=== PATIENT | female | born 1970 | race American Indian/Alaskan Native ===

== ENCOUNTER 2017-02-24 10:46 | Emergency (ER) | payer MEDICARE ==
[2017-02-24 11:27] VITALS: BP 136/95
[2017-02-24] MEDS ORDERED: ASPIRIN PO ONE (11:27)
[2017-02-24 12:03] LABS: Basophils % (Auto) 0.6 % (0.0-1.8); Eosinophils # (Auto) 0.1 K/mm3 (0.0-0.4); Eosinophils % (Auto) 1.9 % (0.0-4.3); Hematocrit 39.4 % (30.3-42.9); Lymphocytes # (Auto) 1.9 K/mm3 (1.2-5.4); Lymphocytes % (Auto) 26.4 % (13.4-35.0); Mean Corpuscular HGB Conc 33 % (30-34); Mean Corpuscular Hemoglobin 28 pg (28-32); Mean Corpuscular Volume 85 fl (79-97); Monocytes # (Auto) 0.5 K/mm3 (0.0-0.8); Monocytes % (Auto) 6.3 % (0.0-7.3); Platelet Count 211 K/mm3 (140-440); Red Blood Count 4.65 M/mm3 (3.65-5.03); Red Cell Distribution Width 13.3 % (13.2-15.2)
[2017-02-24 12:20] LABS: BUN/Creatinine Ratio 14; Blood Urea Nitrogen 7 mg/dL (7-17); Calcium 9.3 mg/dL (8.4-10.2); Hemolysis Index 97
== END 2017-02-24 19:02 | disposition left against medical advice (07) ==
LOC: ED 10:46
DX: R07.9 Chest pain, unspecified (principal); Z53.21 Procedure and treatment not carried out due to patient leaving prior to being seen by health care provider
CPT/HCPCS: 36415; 80048; 84484; 85025; 93005; 93010

== ENCOUNTER 2018-04-18 17:23 | Emergency (ER) | payer MEDICARE ==
--- NOTE | 2018-04-18 17:51 | Emergency Department Report ---
Blank Doc - Documentation Documentation: 48 y/o female was at her MATHEMATICAL ENGINEER and told she had a UTI but was advised by her MATHEMATICAL ENGINEER to go to the ER to have the right pelvic pain evaluated further. NO ultrasound or pelvic exam done per pt. C/o of sharp pelvic pain with increase urinary urgency and frequency
[2018-04-18 19:12] LABS: Basophils # (Auto) 0.1 K/mm3 (0.0-0.1); Basophils % (Auto) 0.9 % (0.0-1.8); Eosinophils # (Auto) 0.1 K/mm3 (0.0-0.4); Eosinophils % (Auto) 2.2 % (0.0-4.3); Hematocrit 38.5 % (30.3-42.9); Lymphocytes # (Auto) 2.1 K/mm3 (1.2-5.4); Lymphocytes % (Auto) 30.2 % (13.4-35.0); Mean Corpuscular HGB Conc 34 % (30-34); Mean Corpuscular Volume 83 fl (79-97); Monocytes # (Auto) 0.3 K/mm3 (0.0-0.8); Monocytes % (Auto) 4.3 % (0.0-7.3); Platelet Count 198 K/mm3 (140-440); Red Blood Count 4.65 M/mm3 (3.65-5.03); Red Cell Distribution Width 13.9 % (13.2-15.2)
[2018-04-18 19:28] LABS: Bilirubin,Urine NEG (Negative); Blood,Urine NEG (Negative); Color,Urine Yellow (Yellow); Protein,Urine <15 mg/dL mg/dL (Negative); Urobilinogen,Urine < 2.0 mg/dL (<2.0)
[2018-04-18 19:34] LABS: Alanine Aminotransferase 29 units/L (7-56); Albumin 3.9 g/dL (3.9-5); BUN/Creatinine Ratio 12; Blood Urea Nitrogen 7 mg/dL (7-17); Calcium 8.9 mg/dL (8.4-10.2); Hemolysis Index 13
--- NOTE | 2018-04-18 22:27 | Cat Scan Report ---
FINAL REPORT PROCEDURE: CT abdomen and pelvis with contrast. TECHNIQUE: Computerized axial tomography of the abdomen and pelvis was performed after the IV inject ion of iodinated nonionic contrast. HISTORY: Lower abdominal pain. COMPARISON: No prior studies are available for comparison. FINDINGS: The lung bases are clear. There are no pleural effusions. The heart size is normal. There is very mil d diffuse fatty metamorphosis of the liver. Cholecystectomy clips are present. There is no biliary di latation. The pancreas and spleen appear normal. The adrenal glands are not enlarged. Both kidneys ap pear normal in size and configuration. The abdominal aorta has a normal caliber. There is no retroper itoneal adenopathy. There are some surgical clips in the stomach. There are several diverticula in th e descending colon. A normal appendix is visible. The bladder appears normal. The uterus has been rem alok. The regional skeleton appears intact. IMPRESSION: Very mild fatty metamorphosis of the liver. Previous cholecystectomy and hysterectomy. Previous stoma ch surgery. No evidence of acute disease in the abdomen or pelvis.
[2018-04-18] MEDS ORDERED: TORADOL IV ONE (23:18)
--- NOTE | 2018-04-18 23:19 | Emergency Department Report ---
ED Abdominal Pain HPI - General Chief Complaint: Abdominal Pain Stated Complaint: STOMACH PAIN Time Seen by Provider: 04/18/18 17:48 Source: patient Mode of arrival: Ambulatory Limitations: No Limitations - History of Present Illness Initial Comments: This is a 48-year-old -Italian female Presents with right lower quadrant pain for 3 days. Past medical history of rheumatoid arthritis, diabetes, hypertension, lupus obesity, and sleep apnea. Patient went to her WASTE EXAMINER today ran multiple tests and told her to follow-up in the emergency room for CT scan. Patient states she was diagnosed with a urinary tract infection and her floor space allocator called in a prescription to her pharmacy. She also reports dysuria and frequency. She denies vaginal discharge, vaginal bleeding, diarrhea, nausea or vomiting. MD Complaint: abdominal pain Onset/Timin -: days(s) Location: RLQ Radiation: none Migration to: no migration Severity: severe Severity scale (0 -10): 9 Quality: cramping Consistency: intermittent Improves With: nothing Worsens With: movement Associated Symptoms: denies other symptoms Treatments Prior to Arrival: NSAIDs - Related Data Home Medications Medication Instructions Recorded Confirmed Last Taken Cyanocobalamin 1,000 mg SUBLINGUAL DAILY 09/05/14 09/05/14 Unknown Fexofenadine HCl [Mucinex Allergy] 180 mg PO HS 09/05/14 09/05/14 Unknown Folic Acid 1 mg PO QDAY 09/05/14 09/05/14 Unknown Furosemide [Lasix] 40 mg PO QAM 09/05/14 09/05/14 Unknown Gabapentin 300 mg PO BID 09/05/14 09/05/14 Unknown Glimepiride [Amaryl] 2 mg PO QHS 09/05/14 09/05/14 Unknown Glimepiride [Amaryl] 4 mg PO QAM 09/05/14 09/05/14 Unknown Hydroxychloroquine [Plaquenil] 200 mg PO DAILY 09/05/14 09/05/14 Unknown Losartan [Cozaar] 100 mg PO QDAY 09/05/14 09/05/14 Unknown Metoprolol [Lopressor] 100 mg PO DAILY 09/05/14 09/05/14 Unknown Modafinil [Provigil] 200 mg PO QDAY 09/05/14 09/05/14 Unknown Morphine ER 2.5 mg PO BID 09/05/14 09/05/14 Unknown Protonix TAB 40 mg PO DAILY 09/05/14 09/05/14 Unknown Salsalate [Disalcid] 500 mg PO BID 09/05/14 09/05/14 Unknown Vitamin D 1,000 mg PO QDAY 09/05/14 09/05/14 Unknown metFORMIN [Glucophage] 500 mg PO BID 09/05/14 09/05/14 Unknown metHOTREXate(DOSE WEEKLY ONLY) 1.25 mg PO QWEEK 09/05/14 09/05/14 Unknown [metHOTREXate (DOSE WEEKLY ONLY)] Previous Rx's Medication Instructions Recorded Last Taken Type traMADol [Ultram 50 MG tab] 50 mg PO Q6HR PRN #12 tablet 04/19/18 Unknown Rx Allergies Allergy/AdvReac Type Severity Reaction Status Date / Time red dye Allergy HIVES / Verified 05/01/14 11:54 SHORTNESS OF BREATH ED Review of Systems ROS: Stated complaint: STOMACH PAIN Other details as noted in HPI Constitutional: denies: chills, fever Respiratory: denies: cough, shortness of breath, wheezing Cardiovascular: denies: chest pain, palpitations Gastrointestinal: abdominal pain. denies: nausea, diarrhea Genitourinary: dysuria. denies: urgency, discharge Musculoskeletal: denies: back pain, joint swelling, arthralgia Neurological: denies: headache, weakness, paresthesias Psychiatric: denies: anxiety, depression ED Past Medical Hx - Past Medical History Hx Hypertension: Yes Hx Diabetes: Yes Hx Arthritis: Yes (RHEUMATOID) Additional medical history: LUPUS. SLEEP APNEA. OBESITY. MITRAL VALVE REGUR GITATION - Surgical History Hx Cholecystectomy: Yes (gastric sleeve) Additional Surgical History: HYSTERECTOMY. TUBAL LIGATION. OOPHARECTOMY. COLON RESECTION - Social History Smoking Status: Never Smoker Substance Use Type: None - Medications Home Medications: Home Medications Medication Instructions Recorded Confirmed Last Taken Type Cyanocobalamin 1,000 mg SUBLINGUAL DAILY 09/05/14 09/05/14 Unknown History Fexofenadine HCl [Mucinex Allergy] 180 mg PO HS 09/05/14 09/05/14 Unknown History Folic Acid 1 mg PO QDAY 09/05/14 09/05/14 Unknown History Furosemide [Lasix] 40 mg PO QAM 09/05/14 09/05/14 Unknown History Gabapentin 300 mg PO BID 09/05/14 09/05/14 Unknown History Glimepiride [Amaryl] 2 mg PO QHS 09/05/14 09/05/14 Unknown History Glimepiride [Amaryl] 4 mg PO QAM 09/05/14 09/05/14 Unknown History Hydroxychloroquine [Plaquenil] 200 mg PO DAILY 09/05/14 09/05/14 Unknown History Losartan [Cozaar] 100 mg PO QDAY 09/05/14 09/05/14 Unknown History Metoprolol [Lopressor] 100 mg PO DAILY 09/05/14 09/05/14 Unknown History Modafinil [Provigil] 200 mg PO QDAY 09/05/14 09/05/14 Unknown History Morphine ER 2.5 mg PO BID 09/05/14 09/05/14 Unknown History Protonix TAB 40 mg PO DAILY 09/05/14 09/05/14 Unknown History Salsalate [Disalcid] 500 mg PO BID 09/05/14 09/05/14 Unknown History Vitamin D 1,000 mg PO QDAY 09/05/14 09/05/14 Unknown History metFORMIN [Glucophage] 500 mg PO BID 09/05/14 09/05/14 Unknown History metHOTREXate(DOSE WEEKLY ONLY) 1.25 mg PO QWEEK 09/05/14 09/05/14 Unknown History [metHOTREXate (DOSE WEEKLY ONLY)] traMADol [Ultram 50 MG tab] 50 mg PO Q6HR PRN #12 tablet 04/19/18 Unknown Rx ED Physical Exam - General Limitations: No Limitations General appearance: alert, in no apparent distress, obese - Respiratory Respiratory exam: Present: normal lung sounds bilaterally. Absent: respiratory distress - Cardiovascular Cardiovascular Exam: Present: regular rate, normal rhythm. Absent: systolic murmur, diastolic murmur, rubs, gallop - GI/Abdominal GI/Abdominal exam: Present: soft, tenderness (right lower quadrant tenderness), normal bowel sounds. Absent: distended, guarding, rebound, rigid, organomegaly, mass - Back Exam Back exam: Absent: CVA tenderness (R), CVA tenderness (L) - Neurological Exam Neurological exam: Present: alert, oriented X3, normal gait - Psychiatric Psychiatric exam: Present: normal affect, normal mood - Skin Skin exam: Present: warm, dry, intact, normal color. Absent: rash ED Course Vital Signs 02/19/19 18:44 Temperature 98.6 F Pulse Rate 85 Respiratory 20 Rate Blood Pressure 171/97 O2 Sat by Pulse 100 Oximetry ED Medical Decision Making - Lab Data Result diagrams: 04/18/18 18:28 04/18/18 18:28 Lab Results 04/18/18 04/18/18 04/18/18 Range/Units 18:28 18:28 18:28 WBC 6.8 (4.5-11.0) K/mm3 RBC 4.65 (3.65-5.03) M/mm3 Hgb 13.0 (10.1-14.3) gm/dl Hct 38.5 (30.3-42.9) % MCV 83 (79-97) fl MCH 28 (28-32) pg MCHC 34 (30-34) % RDW 13.9 (13.2-15.2) % Plt Count 198 (140-440) K/mm3 Lymph % (Auto) 30.2 (13.4-35.0) % [place] % (Auto) 4.3 (0.0-7.3) % Eos % (Auto) 2.2 (0.0-4.3) % Baso % (Auto) 0.9 (0.0-1.8) % Lymph # 2.1 (1.2-5.4) K/mm3 [place] # 0.3 (0.0-0.8) K/mm3 Eos # 0.1 (0.0-0.4) K/mm3 Baso # 0.1 (0.0-0.1) K/mm3 Seg Neutrophils % 62.4 (40.0-70.0) % Seg Neutrophils # 4.3 (1.8-7.7) K/mm3 Sodium 139 (137-145) mmol/L Potassium 3.6 (3.6-5.0) mmol/L Chloride 101.6 (98-107) mmol/L Carbon Dioxide 25 (22-30) mmol/L Anion Gap 16 mmol/L BUN 7 (7-17) mg/dL Creatinine 0.6 L (0.7-1.2) mg/dL Estimated GFR > 60 ml/min BUN/Creatinine Ratio 12 % Glucose 226 H (65-100) mg/dL Calcium 8.9 (8.4-10.2) mg/dL Total Bilirubin 0.30 (0.1-1.2) mg/dL AST 27 (5-40) units/L ALT 29 (7-56) units/L Alkaline Phosphatase 78 (35-129) units/L Total Protein 7.0 (6.3-8.2) g/dL Albumin 3.9 (3.9-5) g/dL Albumin/Globulin Ratio 1.3 % Lipase 32 (13-60) units/L Urine Color (Yellow) Urine Turbidity (Clear) Urine pH (5.0-7.0) Ur Specific [place] (1.003-1.030) Urine Protein (Negative) mg/dL Urine Glucose (UA) (Negative) mg/dL Urine Ketones (Negative) mg/dL Urine Blood (Negative) Urine Nitrite (Negative) Urine Bilirubin (Negative) Urine Urobilinogen (<2.0) mg/dL Ur Leukocyte Esterase (Negative) Urine WBC (Auto) (0.0-6.0) /HPF Urine RBC (Auto) (0.0-6.0) /HPF U Epithel Cells (Auto) (0-13.0) /HPF 04/18/18 Range/Units 18:59 WBC (4.5-11.0) K/mm3 RBC (3.65-5.03) M/mm3 Hgb (10.1-14.3) gm/dl Hct (30.3-42.9) % MCV (79-97) fl MCH (28-32) pg MCHC (30-34) % RDW (13.2-15.2) % Plt Count (140-440) K/mm3 Lymph % (Auto) (13.4-35.0) % [place] % (Auto) (0.0-7.3) % Eos % (Auto) (0.0-4.3) % Baso % (Auto) (0.0-1.8) % Lymph # (1.2-5.4) K/mm3 [place] # (0.0-0.8) K/mm3 Eos # (0.0-0.4) K/mm3 Baso # (0.0-0.1) K/mm3 Seg Neutrophils % (40.0-70.0) % Seg Neutrophils # (1.8-7.7) K/mm3 Sodium (137-145) mmol/L Potassium (3.6-5.0) mmol/L Chloride (98-107) mmol/L Carbon Dioxide (22-30) mmol/L Anion Gap mmol/L BUN (7-17) mg/dL Creatinine (0.7-1.2) mg/dL Estimated GFR ml/min BUN/Creatinine Ratio % Glucose (65-100) mg/dL Calcium (8.4-10.2) mg/dL Total Bilirubin (0.1-1.2) mg/dL AST (5-40) units/L ALT (7-56) units/L Alkaline Phosphatase (35-129) units/L Total Protein (6.3-8.2) g/dL Albumin (3.9-5) g/dL Albumin/Globulin Ratio % Lipase (13-60) units/L Urine Color Yellow (Yellow) Urine Turbidity Clear (Clear) Urine pH 6.0 (5.0-7.0) Ur Specific [place] 1.011 (1.003-1.030) Urine Protein <15 mg/dl (Negative) mg/dL Urine Glucose (UA) Neg (Negative) mg/dL Urine Ketones Neg (Negative) mg/dL Urine Blood Neg (Negative) Urine Nitrite Neg (Negative) Urine Bilirubin Neg (Negative) Urine Urobilinogen < 2.0 (<2.0) mg/dL Ur Leukocyte Esterase Sm (Negative) Urine WBC (Auto) 4.0 (0.0-6.0) /HPF Urine RBC (Auto) 1.0 (0.0-6.0) /HPF U Epithel Cells (Auto) 2.0 (0-13.0) /HPF - Radiology Data Radiology results: report reviewed FINAL REPORT PROCEDURE: CT abdomen and pelvis with contrast. TECHNIQUE: Computerized axial tomography of the abdomen and pelvis was performed after the IV injection of iodinated nonionic contrast. HISTORY: Lower abdominal pain. COMPARISON: No prior studies are available for comparison. FINDINGS: The lung bases are clear. There are no pleural effusions. The heart size is normal. There is very mild diffuse fatty metamorphosis of the liver. Cholecystectomy clips are present. There is no biliary dilatation. The pancreas and spleen appear normal. The adrenal glands are not enlarged. Both kidneys appear normal in size and configuration. The abdominal aorta has a normal caliber. There is no retroperitoneal adenopathy. There are some surgical clips in the stomach. There are several diverticula in the descending colon. A normal appendix is visible. The bladder appears normal. The uterus has been removed. The regional skeleton appears intact. IMPRESSION: Very mild fatty metamorphosis of the liver. Previous cholecystectomy and hysterectomy. Previous stomach surgery. No evidence of acute disease in the abdomen or pelvis. - Medical Decision Making Patient was examined by me. Vitals are normal and patient is in no acute distress. Obtained a labs and CT of the abdomen and pelvis. All labs were unremarkable. CT dictated by radiologist report reviewed by myself. Very mild fatty metamorphosis of the liver. Previous cholecystectomy and hysterectomy. Previous stomach surgery. No evidence of acute disease in the abdomen or pelvis. Patient informed of results. Start tramadol for pain. Follow-up with her long distance operator and primary care provider. Plan discussed with patient to discharge home and treat outpatient. She agrees with ER plan. Patient discharged home in stable condition. Follow up with PCP in 2-3 days. Critical care attestation.: If time is entered above; I have spent that time in minutes in the direct care of this critically ill patient, excluding procedure time. ED Disposition Clinical Impression: Right lower quadrant abdominal pain Disposition: TO HOME OR SELFCARE Is pt being admited?: No Does the pt Need Aspirin: No Condition: Stable Instructions: Abdominal Pain (ED) Additional Instructions: Follow-up with your long distance operator in [place] gastro[facility]. Take naproxen every 6-8 hours as needed for pain. Follow-up with your primary care provider for further evaluation. Prescriptions: traMADol [Ultram 50 MG tab] 50 mg PO Q6HR PRN #12 tablet PRN Reason: Pain Referrals: OLIVIER ORTIZ MD [Primary Care Provider] - 3-5 Days [facility] [Provider Group] - 3-5 Days Forms: Work/School Release Form(ED) Time of Disposition: 00:11
[2018-04-19 01:27] VITALS: BP 169/84
== END 2018-04-19 00:20 | disposition home or self-care (01) ==
LOC: ED 17:23
DX: R10.31 Right lower quadrant pain (principal); I10 Essential (primary) hypertension; E11.9 Type 2 diabetes mellitus without complications; M06.9 Rheumatoid arthritis, unspecified; Z90.49 Acquired absence of other specified parts of digestive tract; Z98.51 Tubal ligation status
CPT/HCPCS: 36415; 74177; 80053; 81001; 83690; 85025; 96374; 99284; J1885

== ENCOUNTER 2019-08-07 21:09 | Emergency (ER) | payer MEDICARE ==
--- NOTE | 2019-08-07 21:26 | Event Note ---
ED Screening Note Date of service: 08/07/19 Time: 21:24 ED Screening Note: 49 yo female presents with rlq abd pain stating that she went to her primary care doctor and was told she had a hernia and was told to follow-up with surgery but due to insurance she was unable to. Patient states that today pain is worsened and localized to her right lower quadrant. she admits diarrhea and no other symptoms This initial assessment/diagnostic orders/clinical plan/treatment(s) is/are subject to change based on patients health status, clinical progression and re- assessment by fellow clinical providers in the ED. Further treatment and workup at subsequent clinical providers discretion. Patient/guardian urged not to elope from the ED as their condition may be serious if not clinically assessed and managed. Initial orders include: labs, ua ct abd?
[2019-08-07 21:57] LABS: Basophils % (Auto) 0.5 % (0.0-1.8); Eosinophils # (Auto) 0.1 K/mm3 (0.0-0.4); Eosinophils % (Auto) 1.7 % (0.0-4.3); Hematocrit 35.6 % (30.3-42.9); Hemoglobin 11.6 gm/dl (10.1-14.3); Lymphocytes # (Auto) 2.4 K/mm3 (1.2-5.4); Lymphocytes % (Auto) 35.1 % (13.4-35.0); Mean Corpuscular HGB Conc 33 % (30-34); Mean Corpuscular Volume 75 fl (79-97); Monocytes # (Auto) 0.4 K/mm3 (0.0-0.8); Monocytes % (Auto) 6.2 % (0.0-7.3); Platelet Count 217 K/mm3 (140-440); Red Blood Count 4.77 M/mm3 (3.65-5.03)
[2019-08-07 22:24] LABS: Alanine Aminotransferase 19 units/L (7-56); BUN/Creatinine Ratio 13; Blood Urea Nitrogen 8 mg/dL (7-17); Calcium 9.3 mg/dL (8.4-10.2); Hemolysis Index 10
[2019-08-07 22:35] LABS: Bacteria,Urine 1+ /HPF (Negative); Bilirubin,Urine NEG (Negative); Blood,Urine NEG (Negative); Color,Urine Yellow (Yellow); Mucus,Urine FEW /HPF; Protein,Urine <15 mg/dL mg/dL (Negative); Urobilinogen,Urine < 2.0 mg/dL (<2.0)
[2019-08-07] MEDS ORDERED: ONDANSETRON 4 MG ODT TAB PO ONE (23:31)
--- NOTE | 2019-08-07 23:31 | Emergency Department Report ---
ED Abdominal Pain HPI - General Chief Complaint: Abdominal Pain Stated Complaint: ABD PAIN Time Seen by Provider: 08/07/19 23:26 Source: patient Mode of arrival: Ambulatory Limitations: No Limitations - History of Present Illness Initial Comments: Ms. Hooper is a 49 yo female with hx of lupus, fibromyagia, HTN, chronic pain syndrome DM who presents with RLQ pain. Dr. Miranda PCP diagnosed hernia. Patient has been unable to find a surgeon who will accept her insurance. She takes Percocet on scheduled basis. She has severe sharp 10/10 pain in spite percocet. Pain radiates to right groin. Patient denies fever, vomiting, constipation. MD Complaint: abdominal pain -: Gradual, days(s) (Several days) Radiation: other (Right groin) Severity scale (0 -10): 10 Quality: sharp Consistency: constant Worsens With: movement Associated Symptoms: other (Diarrhea) - Related Data Home Medications Medication Instructions Recorded Confirmed Last Taken Cyanocobalamin 1,000 mg SUBLINGUAL DAILY 09/05/14 09/05/14 Unknown Fexofenadine HCl [Mucinex Allergy] 180 mg PO HS 09/05/14 09/05/14 Unknown Folic Acid 1 mg PO QDAY 09/05/14 09/05/14 Unknown Furosemide [Lasix] 40 mg PO QAM 09/05/14 09/05/14 Unknown Gabapentin 300 mg PO BID 09/05/14 09/05/14 Unknown Glimepiride [Amaryl] 2 mg PO QHS 09/05/14 09/05/14 Unknown Glimepiride [Amaryl] 4 mg PO QAM 09/05/14 09/05/14 Unknown Hydroxychloroquine [Plaquenil] 200 mg PO DAILY 09/05/14 09/05/14 Unknown Losartan [Cozaar] 100 mg PO QDAY 09/05/14 09/05/14 Unknown Metoprolol [Lopressor] 100 mg PO DAILY 09/05/14 09/05/14 Unknown Morphine ER 2.5 mg PO BID 09/05/14 09/05/14 Unknown Protonix TAB 40 mg PO DAILY 09/05/14 09/05/14 Unknown Salsalate [Disalcid] 500 mg PO BID 09/05/14 09/05/14 Unknown Vitamin D 1,000 mg PO QDAY 09/05/14 09/05/14 Unknown metFORMIN [Glucophage] 500 mg PO BID 09/05/14 09/05/14 Unknown metHOTREXate(DOSE WEEKLY ONLY) 1.25 mg PO QWEEK 09/05/14 09/05/14 Unknown [metHOTREXate (DOSE WEEKLY ONLY)] modafiniL [Provigil] 200 mg PO QDAY 09/05/14 09/05/14 Unknown Previous Rx's Medication Instructions Recorded Last Taken Type traMADoL [Ultram 50 MG tab] 50 mg PO Q6HR PRN #12 tablet 04/19/18 Unknown Rx Allergies Allergy/AdvReac Type Severity Reaction Status Date / Time red dye Allergy HIVES / Verified 05/01/14 11:54 SHORTNESS OF BREATH ED Review of Systems ROS: Stated complaint: ABD PAIN Other details as noted in HPI Comment: All other systems reviewed and negative Constitutional: denies: fever, malaise Respiratory: denies: cough Cardiovascular: denies: chest pain Gastrointestinal: abdominal pain, diarrhea. denies: nausea, vomiting ED Past Medical Hx - Past Medical History Previous Medical History?: Yes Hx Hypertension: Yes Hx Diabetes: Yes Hx Arthritis: Yes (RHEUMATOID) Additional medical history: LUPUS. SLEEP APNEA. OBESITY. MITRAL VALVE REGURGITATION. hernia - Surgical History Past Surgical History?: Yes Hx Cholecystectomy: Yes (gastric sleeve) Additional Surgical History: HYSTERECTOMY. TUBAL LIGATION. OOPHARECTOMY. COLON RESECTION. gastric sleeve - Social History Smoking Status: Never Smoker Substance Use Type: None - Medications Home Medications: Home Medications Medication Instructions Recorded Confirmed Last Taken Type Cyanocobalamin 1,000 mg SUBLINGUAL DAILY 09/05/14 09/05/14 Unknown History Fexofenadine HCl [Mucinex Allergy] 180 mg PO HS 09/05/14 09/05/14 Unknown History Folic Acid 1 mg PO QDAY 09/05/14 09/05/14 Unknown History Furosemide [Lasix] 40 mg PO QAM 09/05/14 09/05/14 Unknown History Gabapentin 300 mg PO BID 09/05/14 09/05/14 Unknown History Glimepiride [Amaryl] 2 mg PO QHS 09/05/14 09/05/14 Unknown History Glimepiride [Amaryl] 4 mg PO QAM 09/05/14 09/05/14 Unknown History Hydroxychloroquine [Plaquenil] 200 mg PO DAILY 09/05/14 09/05/14 Unknown History Losartan [Cozaar] 100 mg PO QDAY 09/05/14 09/05/14 Unknown History Metoprolol [Lopressor] 100 mg PO DAILY 09/05/14 09/05/14 Unknown History Morphine ER 2.5 mg PO BID 09/05/14 09/05/14 Unknown History Protonix TAB 40 mg PO DAILY 09/05/14 09/05/14 Unknown History Salsalate [Disalcid] 500 mg PO BID 09/05/14 09/05/14 Unknown History Vitamin D 1,000 mg PO QDAY 09/05/14 09/05/14 Unknown History metFORMIN [Glucophage] 500 mg PO BID 09/05/14 09/05/14 Unknown History metHOTREXate(DOSE WEEKLY ONLY) 1.25 mg PO QWEEK 09/05/14 09/05/14 Unknown History [metHOTREXate (DOSE WEEKLY ONLY)] modafiniL [Provigil] 200 mg PO QDAY 09/05/14 09/05/14 Unknown History traMADoL [Ultram 50 MG tab] 50 mg PO Q6HR PRN #12 tablet 04/19/18 Unknown Rx ED Physical Exam - General Limitations: No Limitations General appearance: alert, in no apparent distress - Head Head exam: Present: atraumatic, normocephalic - Eye Eye exam: Present: normal appearance - ENT ENT exam: Present: mucous membranes moist - Neck Neck exam: Present: normal inspection, full ROM - Respiratory Respiratory exam: Present: normal lung sounds bilaterally. Absent: respiratory distress, wheezes, rales, rhonchi - Cardiovascular Cardiovascular Exam: Present: regular rate, normal rhythm. Absent: systolic murmur, diastolic murmur, rubs, gallop - GI/Abdominal GI/Abdominal exam: Present: soft, tenderness, guarding. Absent: distended, rebound - External exam: Present: normal external exam. Absent: erythema, swelling, lesions, lacerations, ecchymosis, bleeding - Extremities Exam Extremities exam: Present: normal inspection - Neurological Exam Neurological exam: Present: alert, oriented X3 - Psychiatric Psychiatric exam: Present: normal affect, normal mood - Skin Skin exam: Present: warm, dry, intact, normal color. Absent: rash ED Course Vital Signs 08/07/19 08/07/19 08/08/19 21:18 21:19 00:25 Temperature 98.6 F 98.2 F Pulse Rate 68 63 Respiratory 18 16 14 Rate Blood Pressure 159/105 Blood Pressure 137/72 [Left] O2 Sat by Pulse 100 100 Oximetry 08/08/19 03:35 Temperature Pulse Rate Respiratory 18 Rate Blood Pressure Blood Pressure [Left] O2 Sat by Pulse Oximetry ED Medical Decision Making - Lab Data Result diagrams: 08/07/19 21:38 08/07/19 21:38 - Radiology Data Radiology results: report reviewed CT abdomen pelvis: Reveals mild umbilical hernia without inflammation. No evidence of acute inflammatory process. No evidence of obstruction. - Medical Decision Making Ms. Hooper presents with severe right lower quadrant right groin pain. No evidence of hernia appendicitis no obstruction. She has small umbilical hernia. Refer to general surgeon on-call. Recommended stool softeners. Critical care attestation.: If time is entered above; I have spent that time in minutes in the direct care of this critically ill patient, excluding procedure time. ED Disposition Clinical Impression: Umbilical hernia, Right lower quadrant abdominal pain Disposition: TO HOME OR SELFCARE Is pt being admited?: No Does the pt Need Aspirin: No Condition: Stable Instructions: Abdominal Pain (ED), Umbilical Hernia (ED) Referrals: SHARAD BOURGEOIS DO [Staff Physician] - 3-5 Days
[2019-08-07] MEDS ORDERED: HYDROmorphone 1 MG/1 ML INJ IM ONE (23:32)
[2019-08-08] MEDS ORDERED: HYDROmorphone 1 MG/1 ML INJ ONE (03:30)
[2019-08-08] MEDS ORDERED: ONDANSETRON 4 MG ODT TAB ONE (03:31)
[2019-08-08 13:45] VITALS: BP 118/69
--- NOTE | 2019-08-09 08:44 | Cat Scan Report ---
CT ABDOMEN AND PELVIS WITHOUT CONTRAST INDICATION: Right lower quadrant pain. History of umbilical hernia. COMPARISON: CT abdomen and pelvis with contrast from 04/18/2018. TECHNIQUE: Axial, coronal and sagittal CT imaging of the abdomen and pelvis was performed without IV contrast. Oral contrast was administered. All CT scans at this location are performed using CT dose reduction for ALARA by means of automated exposure control. FINDINGS: LOWER CHEST: No significant abnormality. LIVER: Hepatic steatosis is again seen without an additional significant abnormality. BILIARY: Prior cholecystectomy. No biliary ductal dilatation. PANCREAS: No significant abnormality. SPLEEN: No significant abnormality. ADRENALS: No significant abnormality. KIDNEYS AND URETERS: No significant abnormality. GI TRACT: No significant abnormality of the stomach, small bowel or colon. Unremarkable appendix. PERITONEUM: No free fluid. No free air. No fluid collection. LYMPH NODES: No significant adenopathy. VASCULATURE: No significant abnormality. URINARY BLADDER: No significant abnormality. REPRODUCTIVE ORGANS: Prior hysterectomy. No significant abnormality. ADDITIONAL FINDINGS: There is a similar small umbilical hernia containing fat without associated infl ammation. SKELETAL SYSTEM: No acute abnormality. Mild degenerative changes are noted along the thoracic spine a nd SI joints. IMPRESSION: 1. No acute abnormality of the abdomen or pelvis. 2. Additional findings as above. Signer Name: Uriel Kohler MD Signed: 08/08/2019 2:23 AM Workstation Name: [id number]
== END 2019-08-08 04:42 | disposition home or self-care (01) ==
LOC: ED 21:09
DX: K42.9 Umbilical hernia without obstruction or gangrene (principal); R10.31 Right lower quadrant pain; I10 Essential (primary) hypertension; E11.9 Type 2 diabetes mellitus without complications; M19.91 Primary osteoarthritis, unspecified site; Z90.49 Acquired absence of other specified parts of digestive tract; Z90.710 Acquired absence of both cervix and uterus; Z90.89 Acquired absence of other organs; Z98.890 Other specified postprocedural states; Z98.51 Tubal ligation status; Z79.84 Long term (current) use of oral hypoglycemic drugs; Z79.899 Other long term (current) drug therapy; Z88.8 Allergy status to other drugs, medicaments and biological substances
CPT/HCPCS: 36415; 74176; 80053; 81001; 85025; 96372; 99284; J1170; Q0162

== ENCOUNTER 2020-01-02 13:30 | Emergency (ER) | payer MEDICARE ==
[2020-01-02 13:50] VITALS: BP 163/93
--- NOTE | 2020-01-02 14:03 | Event Note ---
ED Screening Note ED Screening Note: +fever +chills +nausea +cough +sore throat +SOB states she has had symptoms for a week no ear pain no v/d had a COVID 19 yesterday PMHx DM, HTN, lupus allergy: red dye hysterectomy This initial assessment/diagnostic orders/clinical plan/treatment(s) is/are subject to change based on patients health status, clinical progression and re- assessment by fellow clinical providers in the ED. Further treatment and workup at subsequent clinical providers discretion. Patient/guardian urged not to elope from the ED as their condition may be serious if not clinically assessed and managed. Initial orders include: labs, CXR
--- NOTE | 2020-01-02 14:34 | XRay Report ---
CHEST 2 VIEWS INDICATION / CLINICAL INFORMATION: cough, fever, SOB. COMPARISON: None available. FINDINGS: SUPPORT DEVICES: None. HEART / MEDIASTINUM: No significant abnormality. LUNGS / PLEURA: Minimal bibasilar airspace disease No pneumothorax. ADDITIONAL FINDINGS: No significant additional findings. IMPRESSION: Minimal bibasilar airspace disease Signer Name: Ashish Silva MD FACR Signed: 01/02/2020 2:29 PM Workstation Name: [id number]
[2020-01-02 15:17] LABS: Basophils % (Auto) 0.4 % (0.0-1.8); Eosinophils % (Auto) 0.2 % (0.0-4.3); Hematocrit 38.9 % (30.3-42.9); Hemoglobin 12.7 gm/dl (10.1-14.3); Lymphocytes # (Auto) 1.1 K/mm3 (1.2-5.4); Lymphocytes % (Auto) 24.9 % (13.4-35.0); Mean Corpuscular HGB Conc 33 % (30-34); Mean Corpuscular Volume 76 fl (79-97); Monocytes # (Auto) 0.4 K/mm3 (0.0-0.8); Monocytes % (Auto) 9.7 % (0.0-7.3); Platelet Count 159 K/mm3 (140-440); Red Blood Count 5.11 M/mm3 (3.65-5.03); Red Cell Distribution Width 16.3 % (13.2-15.2)
[2020-01-02 15:33] LABS: Alanine Aminotransferase 17 units/L (7-56); Albumin 3.8 g/dL (3.9-5); Blood Urea Nitrogen 6 mg/dL (7-17); Calcium 9.2 mg/dL (8.4-10.2); Hemolysis Index 4
[2020-01-02 15:42] LABS: BUN/Creatinine Ratio 10
[2020-01-02] MEDS ORDERED: DEXAMETHASONE 4 MG TAB PO ONE (16:21)
[2020-01-02] MEDS ORDERED: POTASSIUM CHLORIDE ER 20 MEQ TAB PO ONE (16:21)
--- NOTE | 2020-01-02 16:32 | Emergency Department Report ---
ED General Adult HPI - General Chief complaint: Dyspnea/Respdistress Stated complaint: COVID SYMPTOMS PUI?: Yes Time Seen by Provider: 01/02/20 14:01 Source: patient Mode of arrival: Ambulatory Limitations: No Limitations - History of Present Illness Initial comments: 49-year-old female with history of diabetes, sleep apnea, lupus, hypertension presented with chief complaint of flulike symptoms, gradual onset 1 week ago and worsening. She describes the symptoms as constant in nature. Reports cough, congestion, sore throat, some shortness of breath, fever/chills. She denies nausea vomiting or diarrhea. Denies chest pain. States that [facility] and [facility] for COVID-19 but these test results have not returned yet. She states that she called her primary doctor due to the shortness of breath and was advised to seek care here. No alleviating or exacerbating factors. Severity is moderate. Radiation: non-radiation Severity scale (0 -10): 0 - Related Data Home Medications Medication Instructions Recorded Confirmed Last Taken Cyanocobalamin 1,000 mg SUBLINGUAL DAILY 09/05/14 09/05/14 Unknown Fexofenadine HCl [Mucinex Allergy] 180 mg PO HS 09/05/14 09/05/14 Unknown Folic Acid 1 mg PO QDAY 09/05/14 09/05/14 Unknown Furosemide [Lasix] 40 mg PO QAM 09/05/14 09/05/14 Unknown Gabapentin 300 mg PO BID 09/05/14 09/05/14 Unknown Glimepiride [Amaryl] 2 mg PO QHS 09/05/14 09/05/14 Unknown Glimepiride [Amaryl] 4 mg PO QAM 09/05/14 09/05/14 Unknown Hydroxychloroquine [Plaquenil] 200 mg PO DAILY 09/05/14 09/05/14 Unknown Losartan [Cozaar] 100 mg PO QDAY 09/05/14 09/05/14 Unknown Metoprolol [Lopressor] 100 mg PO DAILY 09/05/14 09/05/14 Unknown Morphine ER 2.5 mg PO BID 09/05/14 09/05/14 Unknown Protonix TAB 40 mg PO DAILY 09/05/14 09/05/14 Unknown Salsalate [Disalcid] 500 mg PO BID 09/05/14 09/05/14 Unknown Vitamin D 1,000 mg PO QDAY 09/05/14 09/05/14 Unknown metFORMIN [Glucophage] 500 mg PO BID 09/05/14 09/05/14 Unknown metHOTREXate(DOSE WEEKLY ONLY) 1.25 mg PO QWEEK 09/05/14 09/05/14 Unknown [metHOTREXate (DOSE WEEKLY ONLY)] modafiniL [Provigil] 200 mg PO QDAY 09/05/14 09/05/14 Unknown Previous Rx's Medication Instructions Recorded Last Taken Type traMADoL [Ultram 50 MG tab] 50 mg PO Q6HR PRN #12 tablet 04/19/18 Unknown Rx Azithromycin [Zithromax] 250 mg PO DAILY #6 tablet 01/02/20 Unknown Rx Allergies Allergy/AdvReac Type Severity Reaction Status Date / Time red dye Allergy HIVES / Verified 05/01/14 11:54 SHORTNESS OF BREATH ED Review of Systems ROS: Stated complaint: COVID SYMPTOMS Other details as noted in HPI Comment: All other systems reviewed and negative Respiratory: see HPI ED Past Medical Hx - Past Medical History Previous Medical History?: Yes Hx Hypertension: Yes Hx Diabetes: Yes Hx Arthritis: Yes (RHEUMATOID) Additional medical history: LUPUS. SLEEP APNEA. OBESITY. MITRAL VALVE REGURGITATION. hernia - Surgical History Past Surgical History?: Yes Hx Internal Defibrillator: Yes Hx Cholecystectomy: Yes (gastric sleeve) Additional Surgical History: HYSTERECTOMY. TUBAL LIGATION. OOPHARECTOMY. COLON RESECTION. gastric sleeve - Social History Smoking Status: Never Smoker Substance Use Type: None - Medications Home Medications: Home Medications Medication Instructions Recorded Confirmed Last Taken Type Cyanocobalamin 1,000 mg SUBLINGUAL DAILY 09/05/14 09/05/14 Unknown History Fexofenadine HCl [Mucinex Allergy] 180 mg PO HS 09/05/14 09/05/14 Unknown History Folic Acid 1 mg PO QDAY 09/05/14 09/05/14 Unknown History Furosemide [Lasix] 40 mg PO QAM 09/05/14 09/05/14 Unknown History Gabapentin 300 mg PO BID 09/05/14 09/05/14 Unknown History Glimepiride [Amaryl] 2 mg PO QHS 09/05/14 09/05/14 Unknown History Glimepiride [Amaryl] 4 mg PO QAM 09/05/14 09/05/14 Unknown History Hydroxychloroquine [Plaquenil] 200 mg PO DAILY 09/05/14 09/05/14 Unknown History Losartan [Cozaar] 100 mg PO QDAY 09/05/14 09/05/14 Unknown History Metoprolol [Lopressor] 100 mg PO DAILY 09/05/14 09/05/14 Unknown History Morphine ER 2.5 mg PO BID 09/05/14 09/05/14 Unknown History Protonix TAB 40 mg PO DAILY 09/05/14 09/05/14 Unknown History Salsalate [Disalcid] 500 mg PO BID 09/05/14 09/05/14 Unknown History Vitamin D 1,000 mg PO QDAY 09/05/14 09/05/14 Unknown History metFORMIN [Glucophage] 500 mg PO BID 09/05/14 09/05/14 Unknown History metHOTREXate(DOSE WEEKLY ONLY) 1.25 mg PO QWEEK 09/05/14 09/05/14 Unknown History [metHOTREXate (DOSE WEEKLY ONLY)] modafiniL [Provigil] 200 mg PO QDAY 09/05/14 09/05/14 Unknown History traMADoL [Ultram 50 MG tab] 50 mg PO Q6HR PRN #12 tablet 04/19/18 Unknown Rx Azithromycin [Zithromax] 250 mg PO DAILY #6 tablet 01/02/20 Unknown Rx ED Physical Exam - General Limitations: No Limitations General appearance: alert, in no apparent distress - Head Head exam: Present: atraumatic, normocephalic - Eye Eye exam: Present: normal appearance - ENT ENT exam: Present: normal exam, normal orophraynx, mucous membranes moist - Neck Neck exam: Present: normal inspection - Respiratory Respiratory exam: Present: normal lung sounds bilaterally. Absent: respiratory distress, wheezes - Cardiovascular Cardiovascular Exam: Present: regular rate, normal rhythm. Absent: systolic murmur, diastolic murmur, rubs, gallop - GI/Abdominal GI/Abdominal exam: Present: soft, normal bowel sounds. Absent: distended, tenderness - Extremities Exam Extremities exam: Present: normal inspection - Back Exam Back exam: Present: normal inspection - Neurological Exam Neurological exam: Present: alert, oriented X3 - Psychiatric Psychiatric exam: Present: normal affect, normal mood - Skin Skin exam: Present: warm, dry, intact, normal color. Absent: rash ED Course Vital Signs 01/02/20 01/02/20 01/02/20 13:47 15:27 16:28 Temperature 99 F Pulse Rate 92 H 106 H 85 Respiratory 18 32 H 18 Rate Blood Pressure 163/93 [Left] O2 Sat by Pulse 95 92 95 Oximetry ED Medical Decision Making - Lab Data Result diagrams: 01/02/20 14:47 01/02/20 14:47 - Radiology Data Radiology results: report reviewed, image reviewed Minimal bibasilar airspace disease - Medical Decision Making 49-year-old female with diabetes and lupus presenting with symptoms of COVID-19 including loss of taste for the last 1 week. Was tested yesterday but does not have results yet. Complains of shortness of breath worsening today. On my exam she is in no respiratory distress, heart sounds are normal, lungs overall clear, abdomen soft nontender, no peripheral edema. Labs were obtained in triage and show minimal leukopenia and hypokalemia, glucose mildly elevated at 195. Her O2 saturation at rest is around 95% and remains above 92% with ambulation around the cheema. We will give dose of Decadron and potassium and recommend continue quarantine at home and monitoring O2 levels. She is to return here for worsening symptoms. I do not see indication for further work-up or admission at this time. She is aware to return for any worsening symptoms. Advised to monitor her O2 levels at home if able. - Differential Diagnosis COVID-19/viral syndrome, pneumonia, PE less likely Critical care attestation.: If time is entered above; I have spent that time in minutes in the direct care of this critically ill patient, excluding procedure time. ED Disposition Clinical Impression: Suspected COVID-19 virus infection Disposition: - TO HOME OR SELFCARE Is pt being admited?: No Condition: Good Instructions: COVID-19 Prescriptions: Azithromycin [Zithromax] 250 mg PO DAILY #6 tablet Referrals: OLIVIER ORTIZ MD [Primary Care Provider] - 3-5 Days Time of Disposition: 16:51
== END 2020-01-02 17:28 | disposition home or self-care (01) ==
LOC: ED 13:30
DX: R05 Cough (principal); Z20.828 Contact with and (suspected) exposure to other viral communicable diseases; J02.9 Acute pharyngitis, unspecified; R09.81 Nasal congestion; I10 Essential (primary) hypertension; E11.9 Type 2 diabetes mellitus without complications; M19.91 Primary osteoarthritis, unspecified site; Z90.49 Acquired absence of other specified parts of digestive tract; Z90.710 Acquired absence of both cervix and uterus; Z98.51 Tubal ligation status; Z98.890 Other specified postprocedural states; Z79.2 Long term (current) use of antibiotics; Z79.899 Other long term (current) drug therapy; Z88.8 Allergy status to other drugs, medicaments and biological substances
CPT/HCPCS: 36415; 71046; 80053; 85025; 99284; J8540

== ENCOUNTER 2020-01-14 09:00 | Emergency (ER) | payer MEDICARE ==
[2020-01-14] MEDS ORDERED: ASPIRIN 325 MG TAB PO ONE (09:08)
--- NOTE | 2020-01-14 09:50 | XRay Report ---
CHEST 1 VIEW INDICATION: Chest Pain. COMPARISON: 01/03/2020 FINDINGS: Support devices: None. Heart: Within normal limits. Lungs/Pleura: No acute air space or interstitial disease. Additional findings: None. IMPRESSION: No acute findings. Signer Name: Carl Suero Jr, MD Signed: 01/14/2020 9:45 AM Workstation Name: [id number]
[2020-01-14 11:17] LABS: Basophils # (Auto) 0.1 K/mm3 (0.0-0.1); Basophils % (Auto) 0.7 % (0.0-1.8); Eosinophils % (Auto) 0.1 % (0.0-4.3); Hematocrit 38.2 % (30.3-42.9); Hemoglobin 12.5 gm/dl (10.1-14.3); Lymphocytes # (Auto) 1.2 K/mm3 (1.2-5.4); Lymphocytes % (Auto) 10.8 % (13.4-35.0); Mean Corpuscular HGB Conc 33 % (30-34); Mean Corpuscular Volume 77 fl (79-97); Monocytes # (Auto) 0.5 K/mm3 (0.0-0.8); Monocytes % (Auto) 4.8 % (0.0-7.3); Platelet Count 236 K/mm3 (140-440); Red Blood Count 4.98 M/mm3 (3.65-5.03); Red Cell Distribution Width 16.6 % (13.2-15.2)
[2020-01-14 11:30] LABS: INR 0.84 (0.87-1.13)
[2020-01-14 11:39] LABS: Blood Urea Nitrogen 11 mg/dL (7-17); Calcium 9.9 mg/dL (8.4-10.2); Hemolysis Index 62
[2020-01-14 11:40] LABS: BUN/Creatinine Ratio 16
[2020-01-14] MEDS ORDERED: dexAMETHasone 4 MG/ML VIAL IV ONE (12:21)
[2020-01-14] MEDS ORDERED: ONDANSETRON 4 MG/2 ML INJ IV ONE (12:21)
[2020-01-14] MEDS ORDERED: HYDROmorphone 1 MG/1 ML INJ IV ONE (12:21)
[2020-01-14] MEDS ORDERED: ASPIRIN 325 MG TAB ONE (12:44)
[2020-01-14] MEDS ORDERED: oxyCODONE /ACETAMINOPHEN 5-325MG TAB PO ONE (14:01)
--- NOTE | 2020-01-14 14:17 | Emergency Department Report ---
ED Chest Pain HPI - General Chief Complaint: Chest Pain Stated Complaint: SOB/CHEST PAIN/POSS COVID Time Seen by Provider: 01/14/20 12:00 Source: patient, old records reviewed Mode of arrival: Ambulatory Limitations: No Limitations - History of Present Illness Initial Comments: 49-year-old female with a past medical history of lupus, rheumatoid arthritis, diabetes, hypertension, obesity, sleep apnea and recent admission to the hospital for bilateral Covid pneumonia presents to the hospital with complaints of chest pain and shortness of breath. Patient was discharged from the hospital on February 04 after treatment for Covid pneumonia. Patient states she was initially feeling better. Since yesterday she has been having right-sided chest pressure that radiates to the left. Pain initially intermittent but more constant today. Pain is worse with palpation, movement, and deep inspiration. Patient having shortness of breath with any activity and when lying supine. She states her cough has gotten better. She denies fever. She denies calf tenderness, leg edema, history of PE/DVT. She admits to noncompliance with her prescribed Decadron because it is causing her sugars to be too elevated. Instead of taking 6 mg daily she is only taken a half a tablet i.e. 3 mg p.o. daily and has about 2-1/2 tablets left. Severity scale (0 -10): 8 - Related Data Home Medications Medication Instructions Recorded Confirmed Last Taken Cyanocobalamin 1,000 mg SUBLINGUAL DAILY 09/05/14 09/05/14 1 Day Ago ~01/03/20 Fexofenadine HCl [Mucinex Allergy] 180 mg PO HS 09/05/14 09/05/14 Unknown Metoprolol [Lopressor TAB] 100 mg PO DAILY 09/05/14 09/05/14 Unknown Protonix TAB 40 mg PO DAILY 09/05/14 09/05/14 2 Days Ago ~01/02/20 modafiniL [Provigil] 200 mg PO QDAY 09/05/14 09/05/14 Unknown Candesartan (Nf) [Atacand (Nf)] 4 mg PO DAILY 01/04/20 01/04/20 1 Day Ago ~01/03/20 NovoLIN 70/30 30 unit SUB-Q BID 01/04/20 01/04/20 3 Days Ago ~01/01/20 carvediloL [Coreg] 25 mg PO BID 01/04/20 01/04/20 1 Day Ago ~01/03/20 Previous Rx's Medication Instructions Recorded Last Taken Type Acetaminophen [Infants' Pain-Fever] 160 mg PO BID #30 oral.susp 01/06/20 Unknown Rx Cholecalciferol Vit D3 [Vitamin D3 1,000 unit PO QDAY tablet 01/06/20 Unknown Rx 1,000 UNIT TAB] Gabapentin 300 mg PO BID #60 capsule 01/06/20 Unknown Rx Hydroxychloroquine [Plaquenil] 200 mg PO DAILY tablet 01/06/20 Unknown Rx Salsalate [Disalcid] 500 mg PO BID 01/06/20 Unknown Rx modafiniL [Provigil] 200 mg PO QDAY tablet 01/06/20 Unknown Rx oxyCODONE /ACETAMINOPHEN [Percocet 1 tab PO Q6H PRN #10 tablet 01/06/20 Unknown Rx 5/325 mg] Albuterol Sulfate [Proventil Hfa] 2 gm IH Q4HR PRN #1 hfa.aer.ad 01/14/20 Unknown Rx Inhaler, Assist Devices [Space 1 each MC PRN PRN #1 spacer 01/14/20 Unknown Rx Chamber] Insulin Regular, Human [HumuLIN R] See Protocol SC TIDAC #1 vial 01/14/20 Unknown Rx dexAMETHasone [Decadron] 6 mg PO DAILY #5 tablet 01/14/20 Unknown Rx Allergies Allergy/AdvReac Type Severity Reaction Status Date / Time red dye Allergy HIVES / Verified 01/03/20 12:50 SHORTNESS OF BREATH Heart Score - HEART Score History: Slightly suspicious EKG: Normal Age: 45-65 Risk factors: > 3 risk factors or hx of atherosclerotic disease Troponin: < normal limit HEART Score: 3 ED Review of Systems ROS: Stated complaint: SOB/CHEST PAIN/POSS COVID Other details as noted in HPI ED Past Medical Hx - Past Medical History Previous Medical History?: Yes Hx Hypertension: Yes Hx Diabetes: Yes Hx Arthritis: Yes (RHEUMATOID) Additional medical history: LUPUS. SLEEP APNEA. OBESITY. MITRAL VALVE REGURGITATION. hernia - Surgical History Past Surgical History?: Yes Hx Internal Defibrillator: Yes Hx Cholecystectomy: Yes (gastric sleeve) Additional Surgical History: HYSTERECTOMY. TUBAL LIGATION. OOPHARECTOMY. COLON RESECTION. gastric sleeve - Social History Smoking Status: Never Smoker Substance Use Type: None - Medications Home Medications: Home Medications Medication Instructions Recorded Confirmed Last Taken Type Cyanocobalamin 1,000 mg SUBLINGUAL DAILY 09/05/14 09/05/14 1 Day Ago History ~01/03/20 Fexofenadine HCl [Mucinex Allergy] 180 mg PO HS 09/05/14 09/05/14 Unknown History Metoprolol [Lopressor TAB] 100 mg PO DAILY 09/05/14 09/05/14 Unknown History Protonix TAB 40 mg PO DAILY 09/05/14 09/05/14 2 Days Ago History ~01/02/20 modafiniL [Provigil] 200 mg PO QDAY 09/05/14 09/05/14 Unknown History Candesartan (Nf) [Atacand (Nf)] 4 mg PO DAILY 01/04/20 01/04/20 1 Day Ago History ~01/03/20 NovoLIN 70/30 30 unit SUB-Q BID 01/04/20 01/04/20 3 Days Ago History ~01/01/20 carvediloL [Coreg] 25 mg PO BID 01/04/20 01/04/20 1 Day Ago History ~01/03/20 Acetaminophen [Infants' Pain-Fever] 160 mg PO BID #30 oral.susp 01/06/20 Unknown Rx Cholecalciferol Vit D3 [Vitamin D3 1,000 unit PO QDAY tablet 01/06/20 Unknown Rx 1,000 UNIT TAB] Gabapentin 300 mg PO BID #60 capsule 01/06/20 Unknown Rx Hydroxychloroquine [Plaquenil] 200 mg PO DAILY tablet 01/06/20 Unknown Rx Salsalate [Disalcid] 500 mg PO BID 01/06/20 Unknown Rx modafiniL [Provigil] 200 mg PO QDAY tablet 01/06/20 Unknown Rx oxyCODONE /ACETAMINOPHEN [Percocet 1 tab PO Q6H PRN #10 tablet 01/06/20 Unknown Rx 5/325 mg] Albuterol Sulfate [Proventil Hfa] 2 gm IH Q4HR PRN #1 hfa.aer.ad 01/14/20 Unknown Rx Inhaler, Assist Devices [Space 1 each MC PRN PRN #1 spacer 01/14/20 Unknown Rx Chamber] Insulin Regular, Human [HumuLIN R] See Protocol SC TIDAC #1 vial 01/14/20 Unknown Rx dexAMETHasone [Decadron] 6 mg PO DAILY #5 tablet 01/14/20 Unknown Rx ED Physical Exam - General Limitations: No Limitations - Other Other exam information: General: No acute distress Head: Atraumatic Eyes: normal appearance ENT: Moist mucous membranes Neck: Normal appearance, no midline tenderness Chest: Clear to auscultation bilaterally, anterior chest wall tenderness, no tachypnea accessory muscle CV: Regular rate and rhythm Abdomen: Soft, normal bowel sounds, nontender, nondistended, no rebound or guarding Back: Normal inspection Extremity: Normal inspection, full range of motion, no calf tenderness or leg edema Neuro: Alert O x 3, no facial asymmetry, speech clear, no gross motor sensory deficit Psych: Appropriate behavior Skin: No rash ED Course Vital Signs 01/14/20 01/14/20 01/14/20 09:05 12:02 12:16 Temperature 98.6 F Pulse Rate 93 H 68 82 Pulse Rate [ Anterior Bilateral Throughout] Respiratory 20 17 16 Rate Respiratory Rate [Anterior Bilateral Throughout] Blood Pressure Blood Pressure 189/101 [Right] O2 Sat by Pulse 98 Oximetry 01/14/20 01/14/20 01/14/20 12:30 12:46 13:06 Temperature Pulse Rate 77 70 Pulse Rate [ Anterior Bilateral Throughout] Respiratory 17 13 Rate Respiratory Rate [Anterior Bilateral Throughout] Blood Pressure 157/102 Blood Pressure [Right] O2 Sat by Pulse 96 Oximetry 01/14/20 01/14/20 01/14/20 13:11 13:16 13:30 Temperature Pulse Rate 60 65 Pulse Rate [ Anterior Bilateral Throughout] Respiratory 22 21 Rate Respiratory Rate [Anterior Bilateral Throughout] Blood Pressure 157/102 151/93 Blood Pressure [Right] O2 Sat by Pulse 96 98 98 Oximetry 01/14/20 01/14/20 01/14/20 13:46 14:00 14:16 Temperature Pulse Rate 65 80 76 Pulse Rate [ Anterior Bilateral Throughout] Respiratory 19 16 19 Rate Respiratory Rate [Anterior Bilateral Throughout] Blood Pressure 151/93 153/97 153/97 Blood Pressure [Right] O2 Sat by Pulse 96 93 96 Oximetry 01/14/20 01/14/20 01/14/20 14:30 14:46 15:00 Temperature Pulse Rate 72 66 76 Pulse Rate [ Anterior Bilateral Throughout] Respiratory 11 L 25 H 14 Rate Respiratory Rate [Anterior Bilateral Throughout] Blood Pressure 161/100 161/100 182/101 Blood Pressure [Right] O2 Sat by Pulse 98 99 98 Oximetry 01/14/20 01/14/20 01/14/20 15:16 15:30 15:46 Temperature Pulse Rate 62 65 61 Pulse Rate [ Anterior Bilateral Throughout] Respiratory 18 14 10 L Rate Respiratory Rate [Anterior Bilateral Throughout] Blood Pressure 182/101 139/71 139/71 Blood Pressure [Right] O2 Sat by Pulse 97 95 98 Oximetry 01/14/20 01/14/20 01/14/20 16:00 16:33 16:46 Temperature Pulse Rate 74 91 H 54 L Pulse Rate [ Anterior Bilateral Throughout] Respiratory 14 18 Rate Respiratory Rate [Anterior Bilateral Throughout] Blood Pressure 139/71 139/71 139/71 Blood Pressure [Right] O2 Sat by Pulse 96 97 Oximetry 01/14/20 01/14/20 01/14/20 17:00 17:30 17:33 Temperature Pulse Rate 55 L 63 Pulse Rate [ 57 L Anterior Bilateral Throughout] Respiratory 18 14 Rate Respiratory 20 Rate [Anterior Bilateral Throughout] Blood Pressure 134/76 134/76 Blood Pressure [Right] O2 Sat by Pulse 94 99 Oximetry 01/14/20 01/14/20 18:00 18:30 Temperature Pulse Rate 61 105 H Pulse Rate [ Anterior Bilateral Throughout] Respiratory 20 25 H Rate Respiratory Rate [Anterior Bilateral Throughout] Blood Pressure 133/70 133/70 Blood Pressure [Right] O2 Sat by Pulse 94 96 Oximetry - Consultations Consultation #1: 01/14/20 19:15 Case discussed infectious disease doctor Dr. Ren. Recommend Decadron 6 mg daily x1 week. GIULIA score - Giulia Score Age > 65: (0) No Aspirin use within the Past 7 Days: (0) No 3 or more CAD Risk Factors: (1) Yes 2 or more Angina events in past 24 hrs: (0) No Known CAD with more than 50% Stenosis: (0) No Elevated Cardiac Markers: (0) No ST Deviation Greater than 0.5mm: (0) No GIULIA Score: 1 ED Medical Decision Making - Lab Data Result diagrams: 01/14/20 10:36 01/14/20 10:36 Lab Results 01/14/20 01/14/20 01/14/20 Range/Units 10:36 10:36 10:36 WBC 11.3 H (4.5-11.0) K/mm3 RBC 4.98 (3.65-5.03) M/mm3 Hgb 12.5 (10.1-14.3) gm/dl Hct 38.2 (30.3-42.9) % MCV 77 L (79-97) fl MCH 25 L (28-32) pg MCHC 33 (30-34) % RDW 16.6 H (13.2-15.2) % Plt Count 236 (140-440) K/mm3 Lymph % (Auto) 10.8 L (13.4-35.0) % [place] % (Auto) 4.8 (0.0-7.3) % Eos % (Auto) 0.1 (0.0-4.3) % Baso % (Auto) 0.7 (0.0-1.8) % Lymph # (Auto) 1.2 (1.2-5.4) K/mm3 [place] # (Auto) 0.5 (0.0-0.8) K/mm3 Eos # (Auto) 0.0 (0.0-0.4) K/mm3 Baso # (Auto) 0.1 (0.0-0.1) K/mm3 Seg Neutrophils % 83.6 H (40.0-70.0) % Seg Neutrophils # 9.4 H (1.8-7.7) K/mm3 PT (12.2-14.9) Sec. INR (0.87-1.13) D-Dimer (0-234) ng/mlDDU Sodium 137 (137-145) mmol/L Potassium 4.0 (3.6-5.0) mmol/L Chloride 97.5 L (98-107) mmol/L Carbon Dioxide 27 (22-30) mmol/L Anion Gap 17 mmol/L BUN 11 (7-17) mg/dL Creatinine 0.7 (0.6-1.2) mg/dL Estimated GFR > 60 ml/min BUN/Creatinine Ratio 16 % Glucose 291 H (65-100) mg/dL Calcium 9.9 (8.4-10.2) mg/dL Troponin T < 0.010 < 0.010 (0.00-0.029) ng/mL 01/14/20 01/14/20 01/14/20 Range/Units 10:36 10:36 15:47 WBC (4.5-11.0) K/mm3 RBC (3.65-5.03) M/mm3 Hgb (10.1-14.3) gm/dl Hct (30.3-42.9) % MCV (79-97) fl MCH (28-32) pg MCHC (30-34) % RDW (13.2-15.2) % Plt Count (140-440) K/mm3 Lymph % (Auto) (13.4-35.0) % [place] % (Auto) (0.0-7.3) % Eos % (Auto) (0.0-4.3) % Baso % (Auto) (0.0-1.8) % Lymph # (Auto) (1.2-5.4) K/mm3 [place] # (Auto) (0.0-0.8) K/mm3 Eos # (Auto) (0.0-0.4) K/mm3 Baso # (Auto) (0.0-0.1) K/mm3 Seg Neutrophils % (40.0-70.0) % Seg Neutrophils # (1.8-7.7) K/mm3 PT 11.6 L (12.2-14.9) Sec. INR 0.84 L (0.87-1.13) D-Dimer 875.07 H (0-234) ng/mlDDU Sodium (137-145) mmol/L Potassium (3.6-5.0) mmol/L Chloride (98-107) mmol/L Carbon Dioxide (22-30) mmol/L Anion Gap mmol/L BUN (7-17) mg/dL Creatinine (0.6-1.2) mg/dL Estimated GFR ml/min BUN/Creatinine Ratio % Glucose (65-100) mg/dL Calcium (8.4-10.2) mg/dL Troponin T < 0.010 (0.00-0.029) ng/mL - EKG Data -: EKG Interpreted by Me ([facility]) EKG shows normal: sinus rhythm, ST-T waves (No STEMI) Rate: normal (85) - EKG Data When compared to previous EKG there are: no significant change - Radiology Data Radiology results: report reviewed CHEST 1 VIEW INDICATION: Chest Pain. COMPARISON: 01/03/2020 FINDINGS: Support devices: None. Heart: Within normal limits. Lungs/Pleura: No acute air space or interstitial disease. Additional findings: None. IMPRESSION: No acute findings. NUCLEAR MEDICINE PERFUSION LUNG SCAN INDICATION / CLINICAL INFORMATION: sob, cp, elevated ddimer, recent covid pneumonia. TECHNIQUE: 5.2 mCi of Tc-99m MAA were given by IV. COMPARISON: Chest radiograph dated 01/14/2020. FINDINGS: PERFUSION: No significant perfusion defects. ADDITIONAL FINDINGS: None. IMPRESSION: 1. Low probability for pulmonary embolism. - Medical Decision Making Patient presents to the hospital with chest pain status post Covid. During ED stay patient has had negative troponin x3. Pain is atypical and mostly right- sided and spreads to the left chest. Pain is reproducible with palpation and movement. Pain is also worse with deep inspiration. patient complains of shortness of breath with a normal pulse ox. Patient admits to noncompliance with her Decadron which was prescribed for her recent Covid infection due to elevation in blood glucose. As per medical record patient was discharged on 3 L of oxygen. In the ED patient received IV Decadron and bronchodilators as well as pain medication. Patient did have some improvement in her symptoms. After ED treatment she was ambulated with an O2 sat remained 95 to 98% and patient was able to hold a conversation while walking. EKG shows PVCs but unchanged compared to prior. Chest x-ray negative for infiltrate and VQ scan low probability for pulmonary embolism. Case discussed with Dr. Morton infectious disease who recommends a 1 week course of Decadron 6 mg IV. Patient will be placed on regular insulin sliding scale dosing during Decadron course and to resume her current Novolin 70/30 insulin after completion of the steroids. Patient states she has Percocet tens at home to take as needed for pain. Patient's PMD is Dr. Miranda and she was encouraged to follow-up this week. She will call tomorrow to schedule an appointment. Patient also denies that she was sent home on oxygen after recent admission discharge contrary to medical record. Patient has 2 more days of dexamethasone therefore additional 5 tablets will be prescribed to continue x1 more week. Critical Care Time: No Critical care attestation.: If time is entered above; I have spent that time in minutes in the direct care of this critically ill patient, excluding procedure time. ED Disposition Clinical Impression: Pleuritic chest pain, Chest wall pain, History of 2019 novel coronavirus disease (COVID-19), SLE (systemic lupus erythematosus), Diabetes Disposition: DC-01 TO HOME OR SELFCARE Is pt being admited?: No Does the pt Need Aspirin: No Condition: Stable Instructions: COVID-19, Chest Wall Pain, [id number], Type 2 Diabetes Mellitus, Self Care, Adult, Carbohydrate Counting for Diabetes Mellitus, Adult, Pleurodynia, Chest Pain (ED), Diabetes Mellitus Type 2 in Adults (ED) Additional Instructions: Take the medication as prescribed. Call Dr. Miranda's office tomorrow to schedule follow-up visit this week. Return if symptoms worsen as indicated by your discharge instructions. Take regular insulin/scale dosing as indicated while taking the dexamethasone/steroids. Once these are complete resume your previous insulin therapy with Novolin 70/30. Prescriptions: dexAMETHasone [Decadron] 6 mg PO DAILY #5 tablet Insulin Regular, Human [HumuLIN R] See Protocol SC TIDAC #1 vial Albuterol Sulfate [Proventil Hfa] 2 gm IH Q4HR PRN #1 hfa.aer.ad PRN Reason: Wheezing Inhaler, Assist Devices [Space Chamber] 1 each MC PRN PRN #1 spacer PRN Reason: Wheezing Referrals: OLIVIER MIRANDA MD [Staff Physician] - 3-5 Days Time of Disposition: 20:19
--- NOTE | 2020-01-14 16:39 | Nuclear Medicine Report ---
NUCLEAR MEDICINE PERFUSION LUNG SCAN INDICATION / CLINICAL INFORMATION: sob, cp, elevated ddimer, recent covid pneumonia. TECHNIQUE: 5.2 mCi of Tc-99m MAA were given by IV. COMPARISON: Chest radiograph dated 01/14/2020. FINDINGS: PERFUSION: No significant perfusion defects. ADDITIONAL FINDINGS: None. IMPRESSION: 1. Low probability for pulmonary embolism. Signer Name: Uriel Kohler MD Signed: 01/14/2020 4:32 PM Workstation Name: [id number]
[2020-01-14] MEDS ORDERED: IPRATROPIUM/ALBUTEROL SULFATE 3 ML AMPUL.NEB IH ONE (17:04)
[2020-01-14 18:53] VITALS: BP 133/70
== END 2020-01-14 20:20 | disposition home or self-care (01) ==
LOC: ED 09:00
DX: U07.1 COVID-19 (principal); M32.9 Systemic lupus erythematosus, unspecified; R07.89 Other chest pain; I10 Essential (primary) hypertension; M19.91 Primary osteoarthritis, unspecified site; E11.9 Type 2 diabetes mellitus without complications; Z90.49 Acquired absence of other specified parts of digestive tract; Z98.890 Other specified postprocedural states; Z79.4 Long term (current) use of insulin; Z79.899 Other long term (current) drug therapy; Z88.8 Allergy status to other drugs, medicaments and biological substances
CPT/HCPCS: 36415; 71045; 78580; 80048; 84484; 85025; 85379; 85610; 93005; 94640; 96374; 96375; 99285; A9540; J1100; J1170; J2405; 94644